=== PATIENT | female | born 1975 | race Caucasian/White ===

== ENCOUNTER 2021-07-05 21:28 | Emergency (ER) | payer OTHER ==
[2021-07-06] MEDS ORDERED: NAPROXEN 375 M375 MG PO (01:40)
== END 2021-07-06 01:50 | disposition home or self-care (01) ==
LOC: ER1 21:28
DX: S62.612A Displaced fracture of proximal phalanx of right middle finger, initial encounter for closed fracture (principal); F17.200 Nicotine dependence, unspecified, uncomplicated; X50.9XXA Other and unspecified overexertion or strenuous movements or postures, initial encounter; Y92.410 Unspecified street and highway as the place of occurrence of the external cause
CPT/HCPCS: 29125; 73130; 99283

== ENCOUNTER 2021-07-07 12:25 | Emergency (ER) | payer OTHER ==
[~2021-07-07 12:25] MED LIST: NAPROXEN 375 M375 MG PO
== END 2021-07-07 14:18 | disposition home or self-care (01) ==
LOC: ER1 12:25
DX: S62.600A Fracture of unspecified phalanx of right index finger, initial encounter for closed fracture (principal); F17.200 Nicotine dependence, unspecified, uncomplicated; X58.XXXA Exposure to other specified factors, initial encounter
CPT/HCPCS: 99283